=== PATIENT | female | born 1990 | race Caucasian/White ===

== ENCOUNTER 2019-12-12 08:03 | Inpatient (IN) | payer OTHER ==
[~2019-12-12 08:03] MED LIST: Acetaminophen 325 MG Tab PO PRN; Carboprost Tromethamine 250 MCG/1 ML Amp IM PRN; Lactated Ringers 1,000 ML IV ONE; Lidocaine 1% 30 ML SDV INJECT PRN; Methylergonovine 0.2 MG/1 ML Amp IM PRN; Misoprostol 400 MCG (4 X 100 MCG TAB) RECTAL PRN; Ondansetron 4 MG/2 ML SDV IVPUSH PRN; Oxytocin/Normal Saline 30 UNIT/500 ML BAG IV SCH; Sodium Chloride 0.9% 10 ML Syringe FLUSH PRN; Tranexamic Acid 1,000 MG in Sodium Chloride 0.9% 100 ML IV PRN; fentaNYL 100 MCG/2 ML SDV IVPUSH PRN
[2019-12-12] MEDS: Lactated Ringers 1,000 ML IV SCH ×3 (11:00→16:19)
[2019-12-12] MEDS ORDERED: EPINEPHrine 1 MG/1 ML Amp ONE (15:49)
--- NOTE | 2019-12-12 16:11 | PCM.PREANE ---
Preanesthetic Assessment - Procedure Proposed Procedure: intrathecal analgesia - Anesthesia/Transfusion/Family Hx Anesthesia History: No Prior Anesthesia Family History of Anesthesia Reaction: No Transfusion History: No Prior Transfusion(s) - Review of Systems General: No Symptoms Pulmonary: No Symptoms Cardiovascular: No Symptoms Gastrointestinal: No Symptoms Neurological: No Symptoms Other: Reports: None - Physical Assessment NPO Status Date: 12/12/19 (ate lunch today. Vomited) NPO Status Time: 13:00 Vital Signs: Last Vital Signs Temp 96.6 F L 12/12/19 14:10 Pulse 72 12/12/19 15:00 Resp 16 12/12/19 15:00 BP 120/70 12/12/19 15:00 Pulse Ox Height: 5 ft 7 in Weight: 200 lb ASA Class: 2E Mental Status: Alert & Oriented x3 Airway Class: Mallampati = 2 Dentition: Reports: Normal Dentition ROM/Head Extension: Full Lungs: Clear to Auscultation Cardiovascular: Regular Rate, Regular Rhythm - Lab Values: Laboratory Last Values WBC 8.1 10^3/uL (5.0-10.0) 12/12/19 08:55 RBC 3.79 10^6/uL (4.2-5.4) L 12/12/19 08:55 Hgb 12.1 g/dL (12.0-16.0) 12/12/19 08:55 Hct 34.9 % (37.0-47.0) L 12/12/19 08:55 MCV 92.1 fL (80-100) 12/12/19 08:55 MCH 31.9 pg (27.0-34.0) 12/12/19 08:55 MCHC 34.7 g/dL (33.0-35.0) 12/12/19 08:55 Plt Count 186 10^3/uL (150-450) 12/12/19 08:55 SARS-CoV-2 RNA (RT-PCR) Negative (NEGATIVE) 12/12/19 08:10 - Allergies Allergies/Adverse Reactions: Allergies Allergy/AdvReac Type Severity Reaction Status Date / Time No Known Allergies Allergy Verified 12/12/19 09:29 - Anesthesia Plan Free Text/Narrative:: Discussed IT with patient. Agrees to proceed. - Acknowledgements Anesthesia Type Planned: Spinal Pt an Appropriate Candidate for the Planned Anesthesia: Yes Alternatives and Risks of Anesthesia Discussed w Pt/Guardian: Yes Pt/Guardian Understands and Agrees with Anesthesia Plan: Yes PreAnesthesia Questionnaire TALENT [employer] History: Reports: , Spontaneous Hematologic History: Reports: Anemia - SUBSTANCE USE Smoking Status *Q: Never Smoker Second Hand Smoke Exposure: No Recreational Drug Use History: No - HOME MEDS Home Medications: Home Meds Pnv No.95/Ferrous Fum/Folic AC [Prenavite Tablet] 1 tab PO DAILY 12/10/19 [ History] Ferrous Sulfate 325 mg PO BID 12/12/19 [History] - CURRENT (IN HOUSE) MEDS Current Meds: Current Medications Acetaminophen (Tylenol) 650 mg PO Q4H PRN PRN Reason: Pain (Mild 1-3) and fever Acetaminophen (Tylenol) 650 mg PO Q4H PRN PRN Reason: Pain/Fever Carboprost Tromethamine (Hemabate Ds) 250 mcg IM ASDIRECTED PRN PRN Reason: HEMORRHAGE Fentanyl (Sublimaze) 100 mcg IVPUSH Q1H PRN PRN Reason: Pain (moderate 4-6) Last Admin: 12/12/19 14:35 Dose: 100 mcg Lactated Ringer's (Ringers, Lactated) 1,000 mls @ 125 mls/hr IV ASDIRECTED LAQUITA Last Admin: 12/12/19 11:00 Dose: 125 mls/hr Oxytocin/Sodium Chloride (Pitocin In Ns 30 Unit/500 Ml) 30 unit in 500 mls @ 2 mls/hr IV TITRATE LAQUITA; Protocol Last Titration: 12/12/19 14:00 Dose: 14 mls/hr Oxytocin/Sodium Chloride (Pitocin In Ns 30 Unit/500 Ml) 30 unit in 500 mls @ 2 mls/hr IV TITRATE LAQUITA; Protocol Tranexamic Acid 1,000 mg/ (Sodium Chloride) 110 mls @ 660 mls/hr IV ONETIME PRN PRN Reason: Bleeding Lidocaine HCl (Xylocaine-Mpf 1%) 30 ml INJECT ASDIRECTED PRN PRN Reason: Perineal Repair Methylergonovine Maleate (Methergine) 0.2 mg IM ASDIRECTED PRN PRN Reason: Hemorrhage Misoprostol (Cytotec) 800 mcg RECTAL ASDIRECTED PRN PRN Reason: Hemorrhage Ondansetron HCl (Zofran) 4 mg IVPUSH Q4H PRN PRN Reason: Nausea/Vomiting Sodium Chloride (Saline Flush) 10 ml FLUSH ASDIRECTED PRN PRN Reason: Keep Vein Open Discontinued Medications Epinephrine HCl (Adrenalin) Confirm Administered Dose 1 mg .ROUTE .STK-MED ONE Stop: 12/12/19 15:50 Lactated Ringer's (Ringers, Lactated) 1,000 mls @ 999 mls/hr IV BOLUS ONE Stop: 12/12/19 09:00 Sufentanil Citrate (Sufenta) Confirm Administered Dose 50 mcg .ROUTE .STK-MED ONE Stop: 12/12/19 15:51
--- NOTE | 2019-12-12 16:14 | PCM.PRNOTE ---
- Free Text/Narrative Note: Intrathecal. Room 1553 Sitting position Back prepped and draped NSF with betadine. Time out 1600 Lidocaine 1% skin wheal L3/4 24ga IT. +CSF -Heme - parathesia 1.0mL 0.75% marcaine 0.1mL epi 20mcg sufenta. Tolerated well all needles accounted for. IT complete 1601. Pre procedure VS: 140/83 HR 64, FHR 120s Post procedure VS: 141/83 HR 75 FHR 120s.
--- NOTE | 2019-12-12 19:44 | PN ---
DATE: 12/12/2019 SUBJECTIVE: The patient has been doing well. This morning, artificial rupture of membranes was performed around 9 a.m. with return of clear fluid and she has been progressing nicely through labor. Once she reached 5 cm dilated, 95% effaced, and +1 station, she was requesting intrathecal and had already had 1 dose of fentanyl intrathecal provided and now she reports she is very comfortable and can feel her legs. OBJECTIVE: General: The patient resting comfortably. Vital Signs: Temperature is 97.0, blood pressure 119/77, pulse of 84. Cervix 6 cm, 95%, and +1. Pitocin turned up to 18. Discussed with the patient indications, risks, benefits, and alternatives of IUPC for better monitoring of the contraction strength and closer monitoring of progress as well as allowing us to have a wider range of Pitocin available, risk of uterine perforation, injury to the baby causing an abruption, and other complications were discussed. She agreed to proceed. IUPC was placed in standard fashion without complications. Baby did have a couple of variables after that, but they have recovered. ASSESSMENT: 1. 40-4/7 weeks' intrauterine . 2. Anemia of . 3. Blood type A positive, rubella immune, group B streptococcus negative. PLAN: At this time, I have elected to turn off the Pitocin for about half an hour and then will restart it so that her receptors will hopefully be more responsive. We can now increase it further as well if needed. Discussed with her possibility of needing a second intrathecal if her labor does not continue to proceed along the standard labor curve, but that the IUPC is also a tool that we will be using to help decide about adequate labor progress before we would determine need for something like a section. Baby strip after IUPC placement. The variables have resolved. We have an occasional early, but otherwise baby is reactive with moderate variability. Contractions are spacing out as we expected. [facility] /[id number]
[2019-12-12] MEDS ORDERED: Simethicone 80 MG Tab.Chew PO PRN (22:57)
[2019-12-12] MEDS ORDERED: Benzocaine/Menthol 20%-0.5% Spray 56 GM Canister TOP PRN (22:57)
[2019-12-12] MEDS: Docusate Sodium 100 MG Cap PO PRN (23:58)
[2019-12-12] MEDS: Ibuprofen 800 MG Tab PO PRN (23:59)
--- NOTE | 2019-12-13 05:20 | OBOUT ---
DATE: 12/12/2019 INDICATION FOR NST: Postdates , 40-4/7 weeks here for induction of labor. REPORT: Baseline heart rate 140 beats per minute at baseline. Moderate [id number] variability. Accelerations noted. [place] shows uterine irritability, but no contractions. INTERPRETATION: Category 1 reassuring and reactive NST. [facility] /[id number]
--- NOTE | 2019-12-13 06:29 | DEL ---
DATE: 12/12/2019 PREPROCEDURE DIAGNOSES: 1. 40-4/7 weeks by last menstrual period. 2. 2 para 0-0-1-0. 3. Postdates . 4. Anemia of . 5. Blood type A positive, rubella immune, group B strep negative. POSTPROCEDURE DIAGNOSES: 1. 40-4/7 weeks by last menstrual period. 2. 2 para 1-0-1-1. 3. Postdates . 4. Anemia of . 5. Blood type A positive, rubella immune, group B strep negative. 6. Status post vaginal delivery. 7. Status post second-degree laceration repair. BRIEF HISTORY: A 29-year-old female brought into the hospital this morning for induction of labor which was initiated with artificial rupture of membranes, and shortly thereafter, Pitocin was added for additional augmentation. After about 12 hours of labor, she was complete and pushed for 40 minutes with some variables noted, but no worrisome findings on the heart tracing and placenta delivered after about 3 minutes with details as below. For other details, see her history and physical. This was an uncomplicated and induction course. DETAILS: With the patient in dorsal lithotomy position and legs back in Jan, she delivered a viable female over intact perineum in the OA position. The baby was dried and stimulated. Mouth was suctioned and baby placed on mother's abdomen for [id number], and after a delay, three-vessel umbilical cord was doubly clamped and then cut. After the cord blood sample obtained, placenta was delivered by gentle cord traction and concomitant uterine massage, inspected and intact. The patient's intrathecal was working fairly well, but she could feel a little bit at the perineum, so 1% lidocaine was used to anesthetize for the repair which was performed with 3-0 Vicryl in the standard fashion with good cosmetic result. ESTIMATED BLOOD LOSS: 200 mL. COMPLICATIONS: None. FINDINGS: Normal female , scores of 8 and 9, weight 3730 g, 8 pounds 3.6 ounces. DISPOSITION: Mother and baby to stay in the room together and initiate . [facility] /[id number]
[2019-12-13] MEDS: Ferrous Sulfate 325 MG Tab PO SCH (08:44)
[2019-12-13] MEDS: Prenatal Multivitamin with Calcium/Folic Acid/Iron Tab PO SCH (08:44)
[2019-12-13] MEDS: Ibuprofen 800 MG Tab PO PRN ×2 (08:44→17:44)
[2019-12-13] MEDS: Docusate Sodium 100 MG Cap PO PRN (08:44)
--- NOTE | 2019-12-13 08:53 | PCM48HPAN ---
Post Anesthesia Note - EVALUATION WITHIN 48HRS OF ANESTHETIC Vital Signs in Normal Range: Yes Patient Participated in Evaluation: Yes Respiratory Function Stable: Yes Airway Patent: Yes Cardiovascular Function Stable: Yes Hydration Status Stable: Yes Pain Control Satisfactory: Yes Nausea and Vomiting Control Satisfactory: Yes Mental Status Recovered: Yes Vital Signs: Last Vital Signs Temp 98.7 F 12/12/19 22:45 Pulse 80 12/13/19 00:15 Resp 16 12/13/19 00:15 BP 134/73 12/13/19 00:15 Pulse Ox - COMMENTS/OBSERVATIONS Free Text/Narrative:: Post intrathecal. Pt sitting up in bed. Denies any complaints or ARCs. Stated she was very comfortable during labor and delivery post IT. VSS.
[2019-12-13] MEDS ORDERED: EPINEPHrine 1 MG/1 ML Amp ONE (10:25)
--- NOTE | 2019-12-13 16:41 | PN ---
DATE: 12/13/2019 SUBJECTIVE: day #1, a 29-year-old 2, now para 1-0-1-1, post vaginal delivery with second-degree repair. She is doing well. She has not had a bowel movement yet, but she is voiding without difficulties, ambulating, tolerating regular diet. Bleeding has been well controlled. overall going well, but having some difficulties with nipple pain and needing to wear the shield on one side. Nurses are working with her on that. She denies any fever, chest pain, shortness of breath, or other concerns. OBJECTIVE: Vital signs: Temperature is 98.5, pulse 74, blood pressure 129/52, respiratory rate of 16. Heart: Regular without murmur. Lungs: Clear to auscultation bilaterally. Abdomen: Soft, nontender. Fundus is firm and below the umbilicus. Extremities: No edema, erythema, or tenderness noted. LABORATORY: Admission hemoglobin was 12.1, and I am not repeating another CBC prior to discharge unless one becomes indicated. ASSESSMENT: 1. day #1 post vaginal delivery with second-degree repair. 2. History of anemia of . 3. mother. PLAN: Anticipate normal cares and anticipate discharge home tomorrow. Nurses will continue to work with mother as necessary. She does have a nipple shield available and I have reassured her that baby does not have any significant lip or tongue tie. [facility] /[id number]
[2019-12-14] MEDS: Docusate Sodium 100 MG Cap PO PRN (08:23)
[2019-12-14] MEDS: Ferrous Sulfate 325 MG Tab PO SCH (08:24)
[2019-12-14] MEDS: Prenatal Multivitamin with Calcium/Folic Acid/Iron Tab PO SCH (08:24)
[2019-12-14] MEDS: Ibuprofen 800 MG Tab PO PRN (08:24)
--- NOTE | 2019-12-15 06:18 | DISCH ---
ADMITTING DIAGNOSES: 1. 40-4/7 weeks' intrauterine based on last menstrual period. 2. 2, para 0-0-1-0. 3. Postdates . 4. Anemia of . 5. Blood type A positive. 6. Rubella immune. 7. Group B streptococcus negative. DISCHARGE DIAGNOSES: 1. 40-4/7 weeks' intrauterine based on last menstrual period. 2. 2, para 0-0-1-0. 3. Postdates . 4. Anemia of . 5. Blood type A positive. 6. Rubella immune. 7. Group B streptococcus negative. 8. Status post spontaneous vaginal delivery with second-degree laceration repair. 9. Status post induction of labor. BRIEF HISTORY: A 29-year-old female with above-listed diagnoses presented to the hospital for planned induction because of postdates. She was already 3 cm, 75%, and -2 station. Artificial rupture of membranes performed and Pitocin augmentation ensued. When the Pitocin got up to 18, she was only 6 cm, and we turned it off for half an hour, turned it back on, placed an IUPC. Despite inadequate she went on to complete and pushed for about 40 minutes resulting in spontaneous vaginal delivery without any complications. There were a lot of very deep variables in stage II, and baby had a loose nuchal cord more or less draped around the neck and shoulders. Placenta delivered in about 3 minutes and was intact. Mother did quite well. She had an intrathecal for anesthesia and there were no complications. Baby's scores were 8 and 9. Baby weighs 3730 g. HOSPITAL COURSE: Has been good. Since delivery, she has been ambulating, tolerating regular diet, voiding, passing flatus. No chest pain or shortness of breath. Bleeding has been well controlled. concerns are being addressed along with the nursing staff. No other problems noted. DISCHARGE CONDITION: Good PHYSICAL EXAMINATION: General: Temperature is 98.4, pulse 78, blood pressure 139/90, previous was 129/52, respiratory rate of 16, O2 saturations 98% on room air. Heart: Regular without murmur. Lungs: Clear to auscultation bilaterally. Abdomen: Soft. Fundus is firm and below the umbilicus. Extremities: Trace edema. No erythema or tenderness noted. PROCEDURES PERFORMED: Induction of labor, artificial rupture of membranes, Pitocin administration, intrauterine pressure catheter, spontaneous vaginal delivery, and second-degree laceration repair. DISPOSITION: Home with family. MEDICATIONS: 1. Iron 325 mg once daily. 2. vitamin 1 tablet once daily. 3. Ibuprofen 800 mg every 8 hours as needed for pain. 4. Tylenol 650 mg every 4-6 hours as needed for pain. 5. Colace 100 mg twice daily as needed for constipation. INSTRUCTIONS: Normal post vaginal delivery instructions for mother were provided, and I will see her in the office at 6 weeks for routine exam. I will also be able to check in on her in regard to signs or symptoms of depression when she brings baby in for the 2-day and the 2-week of age well-checks. [facility] /[id number]
== END 2019-12-14 10:00 | disposition home or self-care (01) | DRG 807 ==
LOC: DL.OBCHECK 08:03 → DL.OB 08:07 → OBSVTOIN 22:10
PROVIDERS: ADMIT Family Medicine; ATTEND Family Medicine
PROC: 10E0XZZ Delivery of Products of Conception, External Approach (ICD-10-PCS; principal; 2019-12-12)
PROC: 0KQM0ZZ Repair Perineum Muscle, Open Approach (ICD-10-PCS; 2019-12-12)
PROC: 10907ZC Drainage of Amniotic Fluid, Therapeutic from Products of Conception, Via Natural or Artificial Opening (ICD-10-PCS; 2019-12-12)
PROC: 10H07YZ Insertion of Other Device into Products of Conception, Via Natural or Artificial Opening (ICD-10-PCS; 2019-12-12)
PROC: 3E0R3BZ Introduction of Anesthetic Agent into Spinal Canal, Percutaneous Approach (ICD-10-PCS; 2019-12-12)
PROC: 00HU33Z Insertion of Infusion Device into Spinal Canal, Percutaneous Approach (ICD-10-PCS; 2019-12-12)
DX: O48.0 Post-term pregnancy (principal); Z37.0 Single live birth; O99.02 Anemia complicating childbirth; D64.9 Anemia, unspecified; O70.1 Second degree perineal laceration during delivery; O69.81X0 Labor and delivery complicated by cord around neck, without compression, not applicable or unspecified; Z3A.40 40 weeks gestation of pregnancy
CPT/HCPCS: 36415; 59025; 59409; 85027; A9270-GY; J0171; J2001; J2590; J3010; J7120; U0002